=== PATIENT | female | born 1950 | race Caucasian/White ===

== ENCOUNTER → 2022-11-20 07:42 | Outpatient (BNVA) | payer MEDICARE, BC, SELFPAY | PROVIDERS: PCP Nurse Practitioner; Visit Provider Psychiatry & Neurology Neurology | DX: G20 Parkinson's disease (principal); F32.A Depression, unspecified | CPT/HCPCS: 99202 ==

== ENCOUNTER → 2023-02-04 07:31 | Outpatient (BNVA) | payer MEDICARE, BC, SELFPAY | PROVIDERS: PCP Nurse Practitioner; Visit Provider Psychiatry & Neurology Neurology | DX: G20 Parkinson's disease (principal); F32.A Depression, unspecified | CPT/HCPCS: 99212 ==

== ENCOUNTER 2023-05-06 07:33 | Outpatient (AMB) | payer MEDICARE, BC, SELFPAY ==
--- NOTE | 2023-05-06 07:39 | MHC.OFFVIS ---
Intake Vital Signs 05/06/23 07:42 Height 5 ft 4 in Weight 106 lb 6 oz BMI 18.3 BP 120/72 Blood Pressure Location Rt brachial Position Sitting Pulse 57 Pulse Source Pulse Oximeter Pulse Oximetry (%) 97 Oxygen Delivery Method Room Air Intake Visit Reasons: 3m follow up tremors-lvm Intake Note: F/U for Tremors Blower And Compressor Assembler Required: No Allergies gabapentin [From Neurontin] Allergy (Verified 05/06/23 07:39) Unknown Medication List - Last Reconciled 05/06/23 by Dimple Gray MD blood sugar diagnostic ([employer] Ultra Test strips) As directed carbidopa-levodopa 25-100 mg 1 tab PO QID cholecalciferol (vitamin D3) 25 mcg PO DAILY meloxicam 7.5 mg PO DAILY pravastatin 20 mg PO DAILY sertraline 50 mg (2 x 25 mg) PO DAILY HPI HPI Comments History of Present Illness Details 72y/o left handed female comes for follow up diagnosis of parkinsons disease.she noticed improvement with increase in sinemet 25/100 qid she reports 1 fall at home- thinks she tripped over a toy. she was alone with her 2 year old grand son she also reports intermittent tremors in her left hand- less than before. . No cognitive issues. she reports vivid dreams . Not sure about REM behavior disorder. she is depressed as she is waiting hear from her electrical design technician about her leaky mitral valve. Her voice is softer , she denies drooling.she has difficulty with hand writing, using utensils, dressing , with shower. Her gait is slow and mildly off balance No double vision .She has occasional dizziness. No diarrhea or constipation. No hallucinations . No h/o head injury. she had h/o Right trigeminal neuralgia and had surgery. she sleeps at 1 am and wakes up at noon she has mitral regurgitation from recent KATRIN- which probably is causing her fatigue. [facility] Medical History (Updated 05/06/23 @ 08:08 by Dimple Gray MD) Arthritis Depression Hyperlipidemia Mitral regurgitation Pre-diabetes Trigeminal neuralgia Vitamin D deficiency Surgical History History of brain surgery Family History Father Stroke Mother No problems noted. Sister Multiple myeloma Brother Heart problem Social History (Reviewed 05/06/23 @ 07:41 by Mesha Antonio [facility]) Alcohol intake: never Patient Tobacco Use Status: Former Tobacco user Quit Date: 1983 Physical Exam Vital Signs: Last Vital Signs Pulse 57 05/06/23 07:42 BP 120/72 05/06/23 07:42 Pulse Ox 97 05/06/23 07:42 Oxygen Delivery Method Room Air 05/06/23 07:42 BMI result Body Mass Index 18.3 Const General: cooperative, healthy appearing and no acute distress Nutritional Appearance: thin Orientation/consciousness: patient oriented x3 HEENT Head: Yes normal to inspection Neck Other: mild antecollis and restricted range of motion Neuro Other: Moderate decreased blink and facial expression slow tongue movements Voice-mild hypophonia No tremors Fine Finger movements - moderately decreased fercho l>R Alternating hand movements - decreased fercho Hand movements - decreased fercho Foot taps- decreased fercho Fercho mild cog wheel rigidity L>R gait - mild stooped, mild slowness and decreased arm swing L>R General: patient oriented x3 and no focal motor deficits Cranial nerves: Yes CN's II-XII intact bilaterally, Yes Bilaterally intact EOM present, Yes Normal facial strength present and Yes Midline tongue present Motor exam (neuro): 5/5 motor strength present throughout and Normal motor muscle tone present throughout Coordination: [id number] test normal Psych Affect: Depressed mood present Assessment & Plan Assessment & Plan (1) Parkinson's disease: Comment: left sided Code(s): G20 - Parkinson's disease (2) Depression: Code(s): F32.A - Depression, unspecified Plan Discussed the diagnosis in detail carbidopa/levodopa 25/100 qid Increase physical activity. sertraline 50mg qd f/u electrical design technician Home exercises from APDA recommended Medications: Changed From sertraline 50 mg (2 x 25 mg) PO DAILY 60 tabs 3RF To sertraline 50 mg PO DAILY 90 tabs 6RF From carbidopa-levodopa 25-100 mg 1 tab PO QID 120 tabs 5RF To carbidopa-levodopa 25-100 mg 1 tab PO QID 90 days 360 tabs 5RF Coding Level of Care Code Est Pt Level 4 (72661) Diagnoses Parkinson's disease G20 Depression F32.A
[2023-05-06 07:42] VITALS: BP 120/72; PULSE 57; O2SAT 97; BMI 18.3
== END 2023-05-06 08:13 | disposition home or self-care (01) ==
LOC: HO.HSMS 07:33
PROVIDERS: PCP Nurse Practitioner; Visit Provider Psychiatry & Neurology Neurology
DX: G20 Parkinson's disease (principal); F32.A Depression, unspecified
CPT/HCPCS: 99214

== ENCOUNTER → 2023-05-06 07:33 | Outpatient (BNVA) | payer MEDICARE, BC, SELFPAY | PROVIDERS: PCP Nurse Practitioner; Visit Provider Psychiatry & Neurology Neurology | DX: G20 Parkinson's disease (principal); F32.A Depression, unspecified; Z79.899 Other long term (current) drug therapy | CPT/HCPCS: 99212 ==

== ENCOUNTER 2023-09-07 07:32 | Outpatient (AMB) | payer MEDICARE, BC, SELFPAY ==
--- NOTE | 2023-09-07 07:36 | A.OFFVIS_ITS ---
Intake Vital Signs 09/07/23 07:43 Weight 111 lb 2 oz BP 112/68 Blood Pressure Location Rt brachial Position Sitting Pulse 65 Pulse Source Pulse Oximeter Pulse Oximetry (%) 100 Oxygen Delivery Method Room Air Intake Visit Reasons: 4m f/u tremors - Confirmed Intake Note: F/U tremors, patient states fell about three weeks ago and injured her arm Circuit Manager Required: No Allergies gabapentin [From Neurontin] Allergy (Verified 09/07/23 07:37) Unknown Medication List - Last Reconciled 09/07/23 by Dimple Gray MD blood sugar diagnostic ([employer] Ultra Test strips) As directed carbidopa-levodopa 25-100 mg 1 tab PO QID 90 days cholecalciferol (vitamin D3) 25 mcg PO DAILY furosemide 20 mg PO DAILY meloxicam 7.5 mg PO DAILY pravastatin 20 mg PO DAILY sertraline mg PO sertraline 50 mg PO DAILY HPI HPI Comments History of Present Illness Details 73y/o left handed female [facility] parkinsons disease.she noticed improvement with increase in sinemet 25/100 qid she had a fall 3 weeks ago - she was dizzy after she stood up and fell in the bathroom. she could not get up for 6 hrs . she was alone at home. she could not get help . she had her FLU vaccine and Covid vaccine the previous day . she also reports vivid dreams and has poor sleep hygiene. she also reports intermittent tremors in her left hand- less than before. . No cognitive issues. Not sure about REM behavior disorder. she saw her it operations manager about her leaky mitral valve-had KATRIN and was told nonsurgical. Her voice is softer , she denies drooling.she has difficulty with hand writing, using utensils, dressing , with shower. Her gait is slow and mildly off balance No double vision .She has occasional dizziness. No diarrhea or constipation. No hallucinations . No h/o head injury. she had h/o Right trigeminal neuralgia and had surgery. she sleeps at 1 am and wakes up at noon [facility] Medical History Mitral regurgitation Depression Vitamin D deficiency Arthritis Trigeminal neuralgia Hyperlipidemia Pre-diabetes Surgical History History of brain surgery Family History Father Stroke Mother No problems noted. Sister Multiple myeloma Brother Heart problem Social History Alcohol intake: never Patient Tobacco Use Status: Former Tobacco user Quit Date: 1983 Use of substances other than those prescribed or required for medical reasons: No Physical Exam Vital Signs: Last Vital Signs Pulse 65 09/07/23 07:43 BP 112/68 09/07/23 07:43 Pulse Ox 100 09/07/23 07:43 Oxygen Delivery Method Room Air 09/07/23 07:43 Const General: cooperative, healthy appearing and no acute distress Nutritional Appearance: thin Orientation/consciousness: patient oriented x3 HEENT Head: Yes normal to inspection Neck Other: mild antecollis and restricted range of motion Neuro Other: Moderate decreased blink and facial expression slow tongue movements Voice-mild hypophonia No tremors Fine Finger movements - moderately decreased peter l>R Alternating hand movements - decreased peter Hand movements - decreased peter Foot taps- decreased peter Peter mild cog wheel rigidity L>R gait - mild stooped, mild slowness and decreased arm swing L>R General: patient oriented x3 and no focal motor deficits Cranial nerves: Yes CN's II-XII intact bilaterally, Yes Bilaterally intact EOM present, Yes Normal facial strength present and Yes Midline tongue present Motor exam (neuro): 5/5 motor strength present throughout and Normal motor muscle tone present throughout Coordination: [id number] test normal Psych Affect: Depressed mood present Assessment & Plan Assessment & Plan (1) Parkinson's disease: Comment: left sided Code(s): G20 - Parkinson's disease (2) Depression: Code(s): F32.A - Depression, unspecified Plan Discussed the diagnosis in detail Carbidopa/levodopa 25/100 qid Increase physical activity.Suggested PT - patient concerned about her heart.I suggetsed she get clearance form her it operations manager. increase fluids start melatonin 5-10 mg at bedtime . sertraline 50mg qd f/u it operations manager Home exercises from APDA recommended - Orders: Orders PT Evaluation and Treatment Today G20 - Parkinson's disease Coding Level of Care Code Est Pt Level 5 (43926) Diagnoses Parkinson's disease G20 Depression F32.A Time Spent (min) 40
[2023-09-07 07:43] VITALS: BP 112/68; PULSE 65; O2SAT 100
== END 2023-09-07 08:12 | disposition home or self-care (01) ==
PROVIDERS: PCP Nurse Practitioner; Visit Provider Psychiatry & Neurology Neurology
DX: G20.A1 Parkinson's disease without dyskinesia, without mention of fluctuations (principal); F32.A Depression, unspecified
CPT/HCPCS: 99215

== ENCOUNTER → 2023-09-07 07:32 | Outpatient (BNVA) | payer MEDICARE, BC, SELFPAY | PROVIDERS: PCP Nurse Practitioner; Visit Provider Psychiatry & Neurology Neurology | DX: F32.A Depression, unspecified (principal); G20.A1 Parkinson's disease without dyskinesia, without mention of fluctuations | CPT/HCPCS: 99212 ==

== ENCOUNTER 2023-11-29 15:23 | Outpatient (AMB) | payer MEDICARE, BC, SELFPAY ==
--- NOTE | 2023-11-29 15:42 | A.OFFVIS_ITS ---
Intake Vital Signs 11/29/23 15:43 Height 5 ft 4 in BP 106/60 Blood Pressure Location Rt brachial Position Sitting Respiration 16 Pulse 78 Pulse Source Pulse Oximeter Pulse Oximetry (%) 98 Oxygen Delivery Method Room Air Intake Visit Reasons: Follow up - LVM Intake Note: Pt presents tot he office for a 3 month follow up for Parkinson's. Pt reports she feels a slight decline since her last visit. Floatlight Powder Mixer Required: No Allergies gabapentin [From Neurontin] Allergy (Verified 11/29/23 15:43) Unknown Medication List - Last Reconciled 11/29/23 by Dimple Gray MD blood sugar diagnostic ([employer] Ultra Test strips) As directed carbidopa-levodopa 25-100 mg 1.5 tabs PO QID 90 days cholecalciferol (vitamin D3) 25 mcg PO DAILY furosemide 20 mg PO DAILY meloxicam 7.5 mg PO DAILY pravastatin 20 mg PO DAILY sertraline mg PO sertraline 50 mg PO DAILY HPI HPI Comments History of Present Illness Details 73y/o left handed female comes for follo w up of parkinsons disease.she noticed improvement with increase in sinemet 25/100 qid. NO falls since her last visi t. she started PT for her left shoulder hand recently she reports fatigue and dizziness. . she also reports vivid dreams and has poor sleep hygiene. she also reports intermittent tremors in her left hand- less than before. . No cognitive issues. Not sure about REM behavior disorder. she saw her compliance quality performance analyst about her leaky mitral valve-had KATRIN and was told nonsurgical. Her voice is softer , she denies drooling.she has difficulty with hand writing, using utensils, dressing , with shower. Her gait is slow and mildly off balance No double vision .. No diarrhea or constipation. No hallucinations . No h/o head injury. she had h/o Right trigeminal neuralgia and had surgery. she sleeps at 1 am and wakes up at noon [facility] Medical History Left arm pain Mitral regurgitation Depression Vitamin D deficiency Arthritis Trigeminal neuralgia Hyperlipidemia Pre-diabetes Surgical History History of brain surgery Family History Father Stroke Mother No problems noted. Sister Multiple myeloma Brother Heart problem Social History Alcohol intake: never Patient Tobacco Use Status: Former Tobacco user Quit Date: 1983 Physical Exam Vital Signs: Last Vital Signs Pulse 78 11/29/23 15:43 Resp 16 11/29/23 15:43 BP 106/60 11/29/23 15:43 Pulse Ox 98 11/29/23 15:43 Oxygen Delivery Method Room Air 11/29/23 15:43 Const General: cooperative, healthy appearing and no acute distress Nutritional Appearance: thin Orientation/consciousness: patient oriented x3 HEENT Head: Yes normal to inspection Neck Other: mild antecollis and restricted range of motion Neuro Other: Moderate decreased blink and facial expression slow tongue movements Voice-mild hypophonia No tremors Fine Finger movements - moderately decreased peter l>R Alternating hand movements - decreased peter Hand movements - decreased peter Foot taps- decreased peter Peter mild cog wheel rigidity L>R gait - mild stooped, mild slowness and decreased arm swing L>R General: patient oriented x3 and no focal motor deficits Cranial nerves: Yes CN's II-XII intact bilaterally, Yes Bilaterally intact EOM present, Yes Normal facial strength present and Yes Midline tongue present Motor exam (neuro): 5/5 motor strength present throughout and Normal motor muscle tone present throughout Coordination: [id number] test normal Psych Affect: Depressed mood present Assessment & Plan Assessment & Plan (1) Parkinson's disease: Comment: left sided Code(s): G20 - Parkinson's disease (2) Depression: Code(s): F32.A - Depression, unspecified Plan Discussed the diagnosis in detail Increase Carbidopa/levodopa 25/100 qid - 1 1/2 qid increase fluids start melatonin 5-10 mg at bedtime . sertraline 50mg qd f/u compliance quality performance analyst Home exercises from APDA recommended - Medications: Changed From carbidopa-levodopa 25-100 mg 1 tab PO QID 360 tabs 5RF 90 days To carbidopa-levodopa 25-100 mg 1.5 tabs PO QID 540 tabs 5RF 90 days Coding Level of Care Code Est Pt Level 4 (25717) Diagnoses Parkinson's disease G20 Depression F32.A
[2023-11-29 15:43] VITALS: BP 106/60; PULSE 78; RESP 16; O2SAT 98
== END 2023-11-29 16:16 | disposition home or self-care (01) ==
PROVIDERS: PCP Nurse Practitioner; Visit Provider Psychiatry & Neurology Neurology
DX: G20.A1 Parkinson's disease without dyskinesia, without mention of fluctuations (principal); F32.A Depression, unspecified
CPT/HCPCS: 99214

== ENCOUNTER → 2023-11-29 15:23 | Outpatient (BNVA) | payer MEDICARE, BC, SELFPAY | PROVIDERS: PCP Nurse Practitioner; Visit Provider Psychiatry & Neurology Neurology | DX: G20.C Parkinsonism, unspecified (principal); F32.A Depression, unspecified; Z79.899 Other long term (current) drug therapy | CPT/HCPCS: 99212 ==

== ENCOUNTER 2023-12-08 14:00 | Outpatient (RCR) | payer MEDICARE, SELFPAY | END 2024-01-04 10:03 | disposition home or self-care (01) | LOC: HO.OT 14:00 | PROVIDERS: PCP Nurse Practitioner; Visit Provider Psychiatry & Neurology Neurology | DX: M79.602 Pain in left arm (principal) | CPT/HCPCS: 97110; 97167; 97530 ==

== ENCOUNTER 2024-03-28 13:53 | Outpatient (AMB) | payer MEDICARE, BC, SELFPAY ==
--- NOTE | 2024-03-28 14:06 | A.OFFVIS_ITS ---
Vital Signs 03/28/24 14:07 Height 5 ft 4 in Weight 102 lb 4 oz BMI 17.5 BP 86/60 L Blood Pressure Location Rt brachial Position Sitting Respiration 16 Pulse 94 Pulse Source Pulse Oximeter Pulse Oximetry (%) 95 Oxygen Delivery Method Room Air Intake Visit Reasons: 3 month/FU - Confirmed Intake Note: Pt presents for a 4 month follow up for Parkinson's. Water Tester Required: No Allergies gabapentin [From Neurontin] Allergy (Verified 03/28/24 14:06) Unknown Medication List - Last Reconciled 03/28/24 by Dimple Gray MD apixaban 5 mg PO BID blood sugar diagnostic ([facility] Ultra Test strips) As directed carbidopa-levodopa 25-100 mg 1.5 tabs PO QID 90 days cholecalciferol (vitamin D3) 25 mcg PO DAILY furosemide 20 mg PO DAILY meloxicam 7.5 mg PO DAILY metoprolol succinate ER 25 mg PO DAILY midodrine 10 mg PO TID midodrine 10 mg PO TID pravastatin 20 mg PO DAILY sertraline mg PO sertraline 50 mg PO DAILY HPI Comments Details: 73y/o left handed female comes for follow up of parkinsons disease.she noticed improvement with increase in sinemet 25/100 qid. she had some food poisoning recently 3-4 days she had nausea and vomiting and was very weak . she had a fall. she drinks water Her is confused with metoprolol and mdiodrine dosing so he has not been giving it. she started PT for her left shoulder hand recently she reports fatigue and dizziness. . she also reports vivid dreams and has poor sleep hygiene. she also reports intermittent tremors in her left hand- less than before. . No cognitive issues. Not sure about REM behavior disorder. she saw her auto garage mechanic about her leaky mitral valve-had KATRIN and was told nonsurgical. Her voice is softer , she denies drooling.she has difficulty with hand writing, using utensils, dressing , with shower. Her gait is slow and mildly off balance No double vision .. No diarrhea or constipation. No hallucinations . No h/o head injury. she had h/o Right trigeminal neuralgia and had surgery. she sleeps at 1 am and wakes up at noon [facility] Medical History (Updated 03/28/24 @ 14:27 by Dimple Gray MD) Parkinson's disease without dyskinesia Left arm pain Mitral regurgitation Depression Vitamin D deficiency Arthritis Trigeminal neuralgia Hyperlipidemia Pre-diabetes Surgical History History of brain surgery Family History Father Stroke Mother No problems noted. Sister Multiple myeloma Brother Heart problem Social History Alcohol intake: never Patient Tobacco Use Status: Former Tobacco user Physical Exam Vital Signs: Last Vital Signs Pulse 94 03/28/24 14:07 Resp 16 03/28/24 14:07 BP 86/60 L 03/28/24 14:07 Pulse Ox 95 03/28/24 14:07 Oxygen Delivery Method Room Air 03/28/24 14:07 BMI result Body Mass Index 17.5 Const General: cooperative, healthy appearing and no acute distress Nutritional Appearance: thin Orientation/consciousness: patient oriented x3 HEENT Head: Yes normal to inspection Neck Other: mild antecollis and restricted range of motion Neuro Other: Moderate decreased blink and facial expression slow tongue movements Voice-mild hypophonia No tremors Fine Finger movements - moderately decreased fercho l>R Alternating hand movements - decreased fercho Hand movements - decreased fercho Foot taps- decreased fercho Fercho mild cog wheel rigidity L>R gait - mild stooped, mild slowness and decreased arm swing L>R General: patient oriented x3 and no focal motor deficits Cranial nerves: Yes CN's II-XII intact bilaterally, Yes Bilaterally intact EOM present, Yes Normal facial strength present and Yes Midline tongue present Motor exam (neuro): 5/5 motor strength present throughout and Normal motor muscle tone present throughout Coordination: [id number] test normal Psych Affect: Depressed mood present Assessment & Plan Assessment & Plan (1) Parkinson's disease without dyskinesia: Code(s): G20.A1 - Parkinson's disease without dyskinesia, without mention of fluctuations Category: Medical (2) Parkinson's disease: Comment: left sided Code(s): G20 - Parkinson's disease Category: Medical (3) Depression: Code(s): F32.A - Depression, unspecified Category: Medical Plan D/C metoprolol change midodrine time Carbidopa/levodopa 25/100 qid increase fluids melatonin 5-10 mg at bedtime . sertraline 50mg qd f/u auto garage mechanic Medications: New midodrine 7am-1pm 3pm 10 mg PO TID 30 tabs 6RF orthostatic hypotension Coding Level of Care Code Est Pt Level 4 (19964) Complex EM visit Add On G2211 Diagnoses Parkinson's disease without dyskinesia G20.A1 Parkinson's disease G20 Depression F32.A
[2024-03-28 14:07] VITALS: BP 86/60; PULSE 94; RESP 16; O2SAT 95; BMI 17.5
== END 2024-03-28 14:50 | disposition home or self-care (01) ==
PROVIDERS: PCP Nurse Practitioner; Visit Provider Psychiatry & Neurology Neurology
DX: G20.A1 Parkinson's disease without dyskinesia, without mention of fluctuations (principal); F32.A Depression, unspecified
CPT/HCPCS: 99214; G2211

== ENCOUNTER → 2024-03-28 13:53 | Outpatient (BNVA) | payer MEDICARE, BC, SELFPAY | PROVIDERS: PCP Nurse Practitioner; Visit Provider Psychiatry & Neurology Neurology | DX: G20.A1 Parkinson's disease without dyskinesia, without mention of fluctuations (principal); F32.A Depression, unspecified; Z79.899 Other long term (current) drug therapy | CPT/HCPCS: 99212 ==

== ENCOUNTER 2024-10-04 15:06 | Outpatient (AMB) | payer MEDICARE, BC, SELFPAY ==
--- NOTE | 2024-10-04 13:53 | A.OFFVIS_ITS ---
Intake Visit Reasons: Follow up Allergies gabapentin [From Neurontin] Allergy (Verified 10/04/24 13:53) Unknown Medication List - Last Reconciled 10/04/24 by Dimple Gray MD apixaban 5 mg PO BID blood sugar diagnostic ([employer] Ultra Test strips) As directed carbidopa-levodopa 25-100 mg 2-1.5-2-1.5 orally 4 times a day; 90 days cholecalciferol (vitamin D3) 25 mcg PO DAILY furosemide 20 mg PO DAILY meloxicam 7.5 mg PO DAILY midodrine 5 mg PO TID midodrine 5 mg PO TID pravastatin 20 mg PO DAILY sertraline 50 mg PO DAILY HPI Comments Details: 74y/o left handed female calls for follow up of parkinsons disease. she is on sinemet 25/100 1.5 tabs qid. she had hallucinations last week but is better the past 2 days. She is on midodrine 10 mg 1/2 tab tid She feels she is slower Droxidopa is very expensive so she stopped. she also reports vivid dreams and has poor sleep hygiene. she also reports intermittent tremors in her left hand- less than before. . No cognitive issues. Not sure about REM behavior disorder. she saw her customer service advisor about her leaky mitral valve-had KATRIN and was told nonsurgical. Her voice is softer , she denies drooling.she has difficulty with hand writing, using utensils, dressing , with shower. Her gait is slow and mildly off balance No double vision .. No diarrhea or constipation. No hallucinations . No h/o head injury. she had h/o Right trigeminal neuralgia and had surgery. she sleeps at 1 am and wakes up at noon [facility] Medical History Orthostatic hypotension Parkinson's disease without dyskinesia Left arm pain Mitral regurgitation Depression Vitamin D deficiency Arthritis Trigeminal neuralgia Hyperlipidemia Pre-diabetes Surgical History History of brain surgery Family History Father Stroke Mother No problems noted. Sister Multiple myeloma Brother Heart problem Social History Alcohol intake: never Patient Tobacco Use Status: Former Tobacco user Physical Exam Const Other: speech - softer Hypophonia ALert , awake oriented General: cooperative Telehealth Telehealth Telehealth Platform: Telephone Location of provider rendering services: practice address Location of patient: address on file Patient Identification confirmed using: Name, : Yes Telehealth method: voice only Patient verbally consented to treatment: Yes Patient verbally consented to billing insurance company: Yes Patient informed of any privacy concerns related to visit: Yes Minutes spent on Phone/Video with Pt.: 22 Assessment & Plan Assessment & Plan (1) Parkinson's disease without dyskinesia: Code(s): G20.A1 - Parkinson's disease without dyskinesia, without mention of fluctuations Category: Medical Qualifiers: Fluctuating manifestations: without fluctuating manifestations Qualified Code(s): G20.A1 - Parkinson's disease without dyskinesia, without mention of fluctuations (2) Depression: Code(s): F32.A - Depression, unspecified Category: Medical Qualifiers: Depression Type: unspecified Qualified Code(s): F32.A - Depression, unspecified (3) Orthostatic hypotension: Code(s): I95.1 - Orthostatic hypotension Category: Medical Plan Midodrine 5mg tid Carbidopa/levodopa 25/100 2- 1.5-2-1.5 increase fluids melatonin 5-10 mg at bedtime . sertraline 50mg qd f/u customer service advisor Medications: Changed From carbidopa-levodopa 25-100 mg 1.5 tabs PO QID 90 days 540 tabs 5RF To carbidopa-levodopa 25-100 mg 2-1.5-2-1.5 orally 4 times a day; 90 days 540 tabs 5RF Discontinued droxidopa give consistently with OR without food, upon rising, at midday, late PM/at least 3hrs before bedtime Discontinued Reason: Patient no longer taking 100 mg PO TID 90 caps 0RF Coding Level of Care Code Tele Est Pt Level 4 (42705) Complex EM visit Add On G2211 Diagnoses Parkinson's disease without dyskinesia or fluctuating manifestations G20.A1 Fluctuating manifestations: without fluctuating manifestations Depression, unspecified depression type F32.A Depression Type: unspecified Orthostatic hypotension I95.1 Time Spent (min) 22
--- OUTSIDE RECORDS SUMMARY | 2024-10-05 02:37 | XMS_ITS | Clinical Summary ---
Author Organization Unknown Care Team Providers Care Nitroglycerin Neutralizer Name Role Phone INGA SAXOPHONE TEACHER, GEO Unavailable Unavailable MICHELA PT, JACLYN Unavailable Unavailable [place]OL[place]AN OT, ISHMAEL Unavailable Unavailable OLIVER RN, JUNG Unavailable Unavailable ROQUE PLASTER WHITTLER, CHI Unavailable Unavailable CONDINO ANDRIY/PLASCENCIA, ERIK Unavailable Unav ailable MARIELLE MONKEY BREEDER, GALILEO Unavailable Unavailabl e Payers Payer Name Policy Type Policy Number Effective Date Expira tion Date MEDICARE.NGS.PDGM [id number] Problems Condition Name Condition Details Condition Category Status Onset Date Resolution Date Last Treatment Date Treating Clinician Comments ACUTE SYSTOLIC (CONGESTIVE) HEART FAILURE Active 04-26 00:00: 00 UNSPECIFIED ATRIAL FIBRILLATION Active 03-02 00:00: 00 PARKINSON'S DIS W/O DYSKINESIA, W/O MENTION OF FLUCTUATIONS Active 03-02 00:00: 00 FX UNSP PART OF L CLAVICLE, SUBS FOR FX W ROUTN HEAL Active 02-28 00:00: 00 UNSPECIFIED INJURY OF RIGHT FOOT, INITIAL ENCOUNTER Active 10-25 00:00: 00 ACUTE RESPIRATORY FAILURE WITH HYPOXIA Active 10-25 00:00: 00 NONRHEUMATIC MITRAL (VALVE) INSUFFICIENC Y Active 10-25 00:00: 00 HYPOTENSION, UNSPECIFIED Active 10-25 00:00: 00 ANXIETY DISORDER, UNSPECIFIED Active 10-25 00:00: 00 DEPRESSION, UNSPECIFIED Active 10-25 00:00: 00 UNSPECIFIED PROTEIN-IFTIKHAR ARIAN MALNUTRITION Active 10-25 00:00: 00 HYPERLIPIDEM IA, UNSPECIFIED Active 10-25 00:00: 00 HISTORY OF FALLING Active 10-25 00:00: 00 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 Ordering Clinician Indication Dosage Frequency Signature (SIG) Comments Components carbidopa 10 mg-levodopa 100 mg tablet 01-23 00:00: 00 Yes [id number] PARKINSON 1 tablet 4 TIMES DAILY 1 tablet 4 TIMES DAILY (route: oral) Med Classific ation: Central Nervous System Agents Eliquis 5 mg tablet 01-23 00:00: 00 Yes [id number] AFIB 1 tablet 2 TIMES DAILY 1 tablet 2 TIMES DAILY (route: oral) Med Classific ation: Hematolog ical Agents Lidocaine Pain Relief 4 % topical patch 01-23 00:00: 00 Yes [id number] PAIN 1 adhesiv e patch, medicat ed DAILY 1 adhesive patch, medicated DAILY (route: topical) Med Classific ation: Dermatolo gical metoprolol succinate ER 25 mg tablet,exte nded release 24 hr 01-23 00:00: 00 03-03 12:57 :13.8 53 No [id number] HTN 0.5 tablet DAILY 0.5 tablet DAILY (route: oral) Med Classific ation: Cardiovas cular Therapy Agents omeprazole 20 mg capsule,del ayed release 01-23 00:00: 00 Yes [id number] GERD 1 capsule DAILY 1 capsule DAILY (route: oral) Med Classific ation: Gastroint estinal Therapy Agents pravastatin 20 mg tablet 01-23 00:00: 00 Yes [id number] HLD 1 tablet DAILY 1 tablet DAILY (route: oral) Med Classific ation: Cardiovas cular Therapy Agents sertraline 25 mg tablet 01-23 00:00: 00 Yes [id number] DEPRESSION 3 tablet DAILY 3 tablet DAILY (route: oral) Med Classific ation: Central Nervous System Agents Tylenol Extra Strength 500 mg tablet 01-23 00:00: 00 Yes [id number] PAIN 2 tablet EVERY 6 HOURS 2 tablet EVERY 6 HOURS (route: oral) Med Classific ation: Analgesic , Anti-infl ammatory or Antipyret ic Vitamin D3 125 mcg (5,000 unit) tablet 01-23 00:00: 00 Yes [id number] SUPPLEMENT 1 tablet DAILY 1 tablet DAILY (route: oral) Med Classific ation: Electroly te Balance-N utritiona l Products docusate sodium 100 mg capsule 03-02 00:00: 00 Yes [id number] CONSTIPATIO N 1 capsule 2 TIMES DAILY 1 capsule 2 TIMES DAILY (route: oral) Med Classific ation: Gastroint estinal Therapy Agents midodrine 10 mg tablet 03-02 00:00: 00 Yes [id number] HYPOTENSION 1 tablet 3 TIMES DAILY 1 tablet 3 TIMES DAILY (route: oral) Med Classific ation: Cardiovas cular Therapy Agents Lasix 20 mg tablet 03-02 00:00: 00 Yes [id number] CHF 1 tablet DAILY 1 tablet DAILY (route: oral) Med Classific ation: Cardiovas cular Therapy Agents carbidopa 25 mg-levodopa 100 mg tablet 03-02 00:00: 00 Yes [id number] parkinsons 1 tablet 4 TIMES DAILY 1 tablet 4 TIMES DAILY (route: oral) Med Classific ation: Central Nervous System Agents metoprolol succinate ER 25 mg tablet,exte nded release 24 hr 03-02 00:00: 00 Yes [id number] htn 1 tablet DAILY 1 tablet DAILY (route: oral) Med Classific ation: Cardiovas cular Therapy Agents Vital Signs Vital Name Observation Time Observation Value Commen ts Temperature 2024-06-28 10:39:00.000 97.7 [degF] Temperature 2024-06-27 14:09:00.000 97.5 [degF] Temperature 2024-06-23 16:30:00.000 97.3 [degF] Temperature 2024-06-22 10:52:00.000 97 [degF] Temperature 2024-06-14 13:45:00.000 97.1 [degF] Temperature 2024-06-08 10:14:00.000 97 [degF] Temperature 2024-05-30 13:35:00.000 97.5 [degF] Temperature 2024-05-25 12:37:00.000 97.3 [degF] Temperature 2024-05-24 17:39:00.000 97 [degF] Temperature 2024-05-17 13:43:00.000 97.1 [degF] Temperature 2024-05-10 13:26:00.000 97.6 [degF] Temperature 2024-05-04 09:32:00.000 97.6 [degF] Pulse 2024-06-28 10:39:00.000 68 /min Pulse 2024-06-27 14:09:00.000 60 /min Pulse 2024-06-23 16:32:00.000 62 /min Pulse 2024-06-22 10:52:00.000 76 /min Pulse 2024-06-14 13:45:00.000 64 /min Pulse 2024-06-08 10:14:00.000 70 /min Pulse 2024-05-30 13:35:00.000 74 /min Pulse 2024-05-25 12:37:00.000 69 /min Pulse 2024-05-24 17:39:00.000 68 /min Pulse 2024-05-17 13:43:00.000 61 /min Pulse 2024-05-10 13:26:00.000 68 /min Pulse 2024-05-04 09:32:00.000 86 /min O2 Saturation (%) 2024-06-28 10:39:00.000 100 % O2 Saturation (%) 2024-06-27 14:09:00.000 99 % O2 Saturation (%) 2024-06-22 10:52:00.000 97 % O2 Saturation (%) 2024-06-14 13:45:00.000 97 % O2 Saturation (%) 2024-06-08 10:14:00.000 97 % O2 Saturation (%) 2024-05-30 13:35:00.000 99 % O2 Saturation (%) 2024-05-25 12:37:00.000 97 % O2 Saturation (%) 2024-05-24 17:39:00.000 97 % O2 Saturation (%) 2024-05-17 13:43:00.000 100 % O2 Saturation (%) 2024-05-10 13:26:00.000 98 % O2 Saturation (%) 2024-05-04 09:32:00.000 96 % Respirations 2024-06-28 10:39:00.000 18 /min Respirations 2024-06-27 14:09:00.000 16 /min Respirations 2024-06-23 16:30:00.000 16 /min Respirations 2024-06-22 10:52:00.000 16 /min Respirations 2024-06-14 13:45:00.000 16 /min Respirations 2024-06-08 10:14:00.000 16 /min Respirations 2024-05-30 13:35:00.000 16 /min Respirations 2024-05-25 12:37:00.000 16 /min Respirations 2024-05-24 17:39:00.000 16 /min Respirations 2024-05-17 13:43:00.000 16 /min Respirations 2024-05-10 13:26:00.000 16 /min Respirations 2024-05-04 09:32:00.000 16 /min Weight (lbs) 2024-06-28 10:39:00.000 103 [lb_av] Weight (lbs) 2024-06-27 14:28:00.000 101.1 [lb_av] Weight (lbs) 2024-06-23 16:30:00.000 101.1 [lb_av] Weight (lbs) 2024-06-22 10:53:00.000 101 [lb_av] Weight (lbs) 2024-06-14 13:45:00.000 102 [lb_av] Weight (lbs) 2024-06-08 10:15:00.000 102 [lb_av] Weight (lbs) 2024-05-30 13:38:00.000 102.2 [lb_av] Weight (lbs) 2024-05-25 12:38:00.000 101 [lb_av] Weight (lbs) 2024-05-24 17:39:00.000 101 [lb_av] Weight (lbs) 2024-05-17 13:44:00.000 101 [lb_av] Weight (lbs) 2024-05-10 13:27:00.000 102 [lb_av] Weight (lbs) 2024-05-04 09:34:00.000 101 [lb_av] Systolic Blood Pressure 2024-06-28 10:39:00.000 104 mm [Hg] Systolic Blood Pressure 2024-06-27 14:09:00.000 104 mm [Hg] Systolic Blood Pressure 2024-06-23 16:34:00.000 100 mm [Hg] Systolic Blood Pressure 2024-06-22 10:52:00.000 100 mm [Hg] Systolic Blood Pressure 2024-06-14 13:45:00.000 100 mm [Hg] Systolic Blood Pressure 2024-06-08 10:14:00.000 116 mm [Hg] Systolic Blood Pressure 2024-05-30 13:35:00.000 106 mm [Hg] Systolic Blood Pressure 2024-05-25 12:37:00.000 104 mm [Hg] Systolic Blood Pressure 2024-05-24 17:39:00.000 108 mm [Hg] Systolic Blood Pressure 2024-05-17 13:43:00.000 105 mm [Hg] Systolic Blood Pressure 2024-05-10 13:26:00.000 110 mm [Hg] Systolic Blood Pressure 2024-05-04 09:32:00.000 90 mm[ Hg] Diastolic Blood Pressure 2024-06-28 10:39:00.000 70 mm [Hg] Diastolic Blood Pressure 2024-06-27 14:09:00.000 56 mm [Hg] Diastolic Blood Pressure 2024-06-23 16:34:00.000 60 mm [Hg] Diastolic Blood Pressure 2024-06-22 10:52:00.000 64 mm [Hg] Diastolic Blood Pressure 2024-06-14 13:45:00.000 60 mm [Hg] Diastolic Blood Pressure 2024-06-08 10:14:00.000 70 mm [Hg] Diastolic Blood Pressure 2024-05-30 13:35:00.000 66 mm [Hg] Diastolic Blood Pressure 2024-05-25 12:37:00.000 59 mm [Hg] Diastolic Blood Pressure 2024-05-24 17:39:00.000 60 mm [Hg] Diastolic Blood Pressure 2024-05-17 13:43:00.000 60 mm [Hg] Diastolic Blood Pressure 2024-05-10 13:26:00.000 60 mm [Hg] Diastolic Blood Pressure 2024-05-04 09:32:00.000 52 mm [Hg] Plan of Treatment Planned Activity Planned Date Details Comments Future Scheduled Test PHYSICAL T HERAPIST TO EVALUATE TREAT INDICATED [code = PHYSICAL THERAPIST TO EVALUATE TREAT INDICATED ] Future Scheduled Test MEDICATION MANAGEMENT; REGISTERED NURSE/LICENSED PRACTICAL NURSE TO REVIEW MEDICATIONS FOR INTERACTIONS, EFFECTIVENESS OF DRUG THERAPY, AND SIGNS/SYMPTOMS OF ADVERSE REACTIONS. MAY INSTRUCT AND REINFORCE MEDICATION TEACHING RELATED TO THE USE OF MEDICATIONS, DOSAGE, FREQUENCY, PURPOSE, SIDE EFFECTS, AND TO REPORT COMPLICATIONS. [code = MEDICATION MANAGEMENT; REGISTERED NURSE/LICENSED PRACTICAL NURSE TO REVIEW MEDICATIONS FOR INTERACTIONS, EFFECTIVENESS OF DRUG THERAPY, AND SIGNS/SYMPTOMS OF ADVERSE REACTIONS. MAY INSTRUCT AND REINFORCE MEDICATION TEACHING RELATED TO THE USE OF MEDICATIONS, DOSAGE, FREQUENCY, PURPOSE, SIDE EFFECTS, AND TO REPORT COMPLICATIONS.] Future Scheduled Test FALL REDUC TION MANAGEMENT; REGISTERED NURSE TO ASSESS AND TEACH/LICENSED PRACTICAL NURSE TO OBSERVE AND TEACH ON EDUCATION AND INTERVENTION TO IDENTIFY FALL RISK FACTORS SUCH MEDICATIONS THAT MAY CAUSE DIZZINESS, CHRONIC DISEASES, PSYCHOLOGICAL FACTORS, AND EMPOWER/EDUCATE PATIENT/CAREGIVER TO MINIMIZE FALL RISK. [code = FALL REDUCTION MANAGEMENT; REGISTERED NURSE TO ASSESS AND TEACH/LICENSED PRACTICAL NURSE TO OBSERVE AND TEACH ON EDUCATION AND INTERVENTION TO IDENTIFY FALL RISK FACTORS SUCH MEDICATIONS THAT MAY CAUSE DIZZINESS, CHRONIC DISEASES, PSYCHOLOGICAL FACTORS, AND EMPOWER/EDUCATE PATIENT/CAREGIVER TO MINIMIZE FALL RISK.] Future Scheduled Test RN TO OBSE RVE, ASSESS, EVALUATE, AND DEVELOP AN INDIVIDUALIZED PLAN OF CARE. AGENCY MAY ACCEPT ORDERS FROM CONSULTING PHYSICIANS GEO XIONG NP. REGISTERED NURSETO OBSERVE AND ASSESS/LICENSED PRACTICAL NURSE TO OBSERVE FOR RISK FOR FALLS AND INSTRUCT IN FALL PREVENTION, HOME SAFETY, MEDICATION MANAGEMENT, INFECTION PREVENTION, AND NUTRITION MANAGEMENT. REGISTERED NURSE/LICENSED PRACTICAL NURSE MAY PERFORM O2 SATURATION LEVEL ON ADMISSION AND PRN FOR SOB FOR RN TO ASSESS/MONKEY BREEDER TO OBSERVE PATIENT, WITH NOTIFICATION TO THE PHYSICIAN IF SATURATION IS 90% IN THE ABSENCE OF MORE SPECIFIC PARAMETERS FROM THE PHYSICIAN. AGENCY MAY PERFORM A RESUMPTION OF CARE VISIT FOLLOWING ANY HOSPITAL ADMISSION. REGISTERED NURSE/LICENSED PRACTICAL NURSE TO MONITOR CO-MORBID CONDITIONS LISTED ON THE PLAN OF CARE AND ANY NEW CONDITIONS THAT PRESENT THEMSELVES DURING THIS EPISODE TO IDENTIFY CHANGES AND INTERVENE TO MINIMIZE COMPLICATIONS. [code = RN TO OBSERVE, ASSESS, EVALUATE, AND DEVELOP AN INDIVIDUALIZED PLAN OF CARE. AGENCY MAY ACCEPT ORDERS FROM CONSULTING PHYSICIANS GEO XIONG NP. REGISTERED NURSETO OBSERVE AND ASSESS/LICENSED PRACTICAL NURSE TO OBSERVE FOR RISK FOR FALLS AND INSTRUCT IN FALL PREVENTION, HOME SAFETY, MEDICATION MANAGEMENT, INFECTION PREVENTION, AND NUTRITION MANAGEMENT. REGISTERED NURSE/LICENSED PRACTICAL NURSE MAY PERFORM O2 SATURATION LEVEL ON ADMISSION AND PRN FOR SOB FOR RN TO ASSESS/MONKEY BREEDER TO OBSERVE PATIENT, WITH NOTIFICATION TO THE PHYSICIAN IF SATURATION IS 90% IN THE ABSENCE OF MORE SPECIFIC PARAMETERS FROM THE PHYSICIAN. AGENCY MAY PERFORM A RESUMPTION OF CARE VISIT FOLLOWING ANY HOSPITAL ADMISSION. REGISTERED NURSE/LICENSED PRACTICAL NURSE TO MONITOR CO-MORBID CONDITIONS LISTED ON THE PLAN OF CARE AND ANY NEW CONDITIONS THAT PRESENT THEMSELVES DURING THIS EPISODE TO IDENTIFY CHANGES AND INTERVENE TO MINIMIZE COMPLICATIONS.] Future Scheduled Test PAIN MANAG EMENT; REGISTERED NURSE TO ASSESS AND TEACH/LICENSED PRACTICAL NURSE TO OBSERVE AND TEACH AND PROVIDE EDUCATION ON PAIN MANAGEMENT TECHNIQUES. [code = PAIN MANAGEMENT; REGISTERED NURSE TO ASSESS AND TEACH/LICENSED PRACTICAL NURSE TO OBSERVE AND TEACH AND PROVIDE EDUCATION ON PAIN MANAGEMENT TECHNIQUES.] Future Scheduled Test 60 DAY PHY SICIAN SUMMARY; JUSTIFY NEED FOR CONTINUED CARE (RECERT) DUE TO NEW GOALS AND/OR PROBLEMS: EXPLAIN/LIST OBSTACLES AND/OR CHALLENGES FOR EXAMPLE: MEDICATION TEACHING [code = 60 DAY PHYSICIAN SUMMARY; JUSTIFY NEED FOR CONTINUED CARE (RECERT) DUE TO NEW GOALS AND/OR PROBLEMS: EXPLAIN/LIST OBSTACLES AND/OR CHALLENGES FOR EXAMPLE: MEDICATION TEACHING ] Future Scheduled Test RISK FOR H OSPITALIZATION; REGISTERED NURSE TO ASSESS /TEACH, LICENSED PRACTICAL NURSE TO OBSERVE/TEACH PATIENT/CAREGIVER ON RISK FOR HOSPITALIZATION/EMERGENCY ROOM VISITS, TEACH SIGNS AND SYMPTOMS THAT PUT PATIENT AT RISK, WHEN TO NOTIFY NURSE/PHYSICIAN OF COMPLICATIONS/DECLINE, AND WHEN TO CALL 911. [code = RISK FOR HOSPITALIZATION; REGISTERED NURSE TO ASSESS /TEACH, LICENSED PRACTICAL NURSE TO OBSERVE/TEACH PATIENT/CAREGIVER ON RISK FOR HOSPITALIZATION/EMERGENCY ROOM VISITS, TEACH SIGNS AND SYMPTOMS THAT PUT PATIENT AT RISK, WHEN TO NOTIFY NURSE/PHYSICIAN OF COMPLICATIONS/DECLINE, AND WHEN TO CALL 911.] Future Scheduled Test CARDIOVASC ULAR SYSTEM; REGISTERED NURSE TO ASSESS /TEACH, LICENSED PRACTICAL NURSE TO OBSERVE/TEACH RELATED TO ALTERED CARDIOVASCULAR STATUS TO MINIMIZE COMPLICATIONS AND REDUCE HOSPITALIZATION. [code = CARDIOVASCULAR SYSTEM; REGISTERED NURSE TO ASSESS /TEACH, LICENSED PRACTICAL NURSE TO OBSERVE/TEACH RELATED TO ALTERED CARDIOVASCULAR STATUS TO MINIMIZE COMPLICATIONS AND REDUCE HOSPITALIZATION. ] Future Scheduled Test HEART FAIL URE; REGISTERED NURSE TO ASSESS /TEACH, LICENSED PRACTICAL NURSE TO OBSERVE/TEACH CARDIOPULMONARY SYSTEM TO IDENTIFY SIGNS OF DECOMPENSATION AND INTERVENE TO MINIMIZE THE SEVERITY OF FLUID OVERLOAD. OBSERVE PATIENT ABILITY TO MONITOR AND RECORD DAILY WEIGHTS AND VITAL SIGNS, INCLUDING PULSE AND BLOOD PRESSURE; RECORD PATIENT REPORTED WEIGHT, OR WEIGH PATIENT NEEDED. REPORT INCREASED EDEMA OR WEIGHT GAIN OF >2 LBS IN 1 DAY OR >5 LBS IN 1 WEEK OR 5LBS OR MORE OVER TARGET WEIGHT. MAY MEASURE ABDOMINAL GIRTH IF UNABLE TO WEIGH. SCALES AND BP MONITOR TO BE PROVIDED IF NEEDED. [code = HEART FAILURE; REGISTERED NURSE TO ASSESS /TEACH, LICENSED PRACTICAL NURSE TO OBSERVE/TEACH CARDIOPULMONARY SYSTEM TO IDENTIFY SIGNS OF DECOMPENSATION AND INTERVENE TO MINIMIZE THE SEVERITY OF FLUID OVERLOAD. OBSERVE PATIENT ABILITY TO MONITOR AND RECORD DAILY WEIGHTS AND VITAL SIGNS, INCLUDING PULSE AND BLOOD PRESSURE; RECORD PATIENT REPORTED WEIGHT, OR WEIGH PATIENT NEEDED. REPORT INCREASED EDEMA OR WEIGHT GAIN OF >2 LBS IN 1 DAY OR >5 LBS IN 1 WEEK OR 5LBS OR MORE OVER TARGET WEIGHT. MAY MEASURE ABDOMINAL GIRTH IF UNABLE TO WEIGH. SCALES AND BP MONITOR TO BE PROVIDED IF NEEDED. ] Future Scheduled Test HYPERTENSI ON MANAGEMENT; REGISTERED NURSE TO ASSESS AND TEACH/LICENSED PRACTICAL NURSE TO OBSERVE AND TEACH WARNING SIGNS AND SYMPTOMS TO AVOID HOSPITALIZATION. [code = HYPERTENSION MANAGEMENT; REGISTERED NURSE TO ASSESS AND TEACH/LICENSED PRACTICAL NURSE TO OBSERVE AND TEACH WARNING SIGNS AND SYMPTOMS TO AVOID HOSPITALIZATION. ] Future Scheduled Test AGENCY MAY PERFORM A RESUMPTION OF CARE VISIT FOLLOWING ANY HOSPITAL ADMISSION. OT TO EVALUATE, OBSERVE / ASSESS, AND MONITOR, QUALITY CONSULTANT TO OBSERVE AND MONITOR, PROVIDE SKILLED THERAPEUTIC INTERVENTION, ACTIVITY, EDUCATION, AND TRAINING TO ADDRESS; PERSONAL HYGIENE/GROOMING (OT/QUALITY CONSULTANT) BATHING/SHOWERING (OT/QUALITY CONSULTANT) DRESSING (OT/ANDRIY) ACTIVITIES OF DAILY LIVING (OT/ANDRIY) MEAL PREPARATION AND CLEANUP (OT/ANDRIY) TOILET TRANSFER (OT/ANDRIY) BATH/SHOWER TRANSFER (OT/ANDRIY) ORTHOTICS/SPLINTING (OT/ANDRIY) POSTURAL CONTROL/BALANCE (OT/QUALITY CONSULTANT) THERAPEUTIC EXERCISE (OT/ANDRIY) FINE MOTOR COORDINATION (OT/QUALITY CONSULTANT) ENERGY CONSERVATION/ACTIVITY DEMAND (OT/QUALITY CONSULTANT) OT/QUALITY CONSULTANT TO MONITOR AND EDUCATE ON OXYGEN SATURATION DURING ADLS/IADLS, NOTIFY PHYSICIAN AND/OR THE RN CLINICAL PROJECT CONTROLS SPECIALIST FOR PHYSICIAN NOTIFICATION AND IF O2 SATS BELOW 90% AFTER 10 MIN OF REST. OT/ANDRIY MAY EDUCATE ON PAIN MANAGEMENT CLINICALLY INDICATED, INCLUDING NON-PHARMACOLOGICAL PAIN REDUCTION TECHNIQUES AND USE OF CRYOTHERAPY OR HEAT UP TO 20 MIN AT A TIME FOR PAIN MANAGEMENT TO LUE OT / ANDRIY TO IDENTIFY FALL RISK FACTORS; EDUCATE THE PATIENT/CAREGIVER ON WAYS TO REDUCE FALL RISK FACTORS AND ESTABLISH HOME EXERCISE PROGRAM TO MINIMIZE FALL RISK. MAY TEACH THE PATIENT FLOOR RECOVERY WHEN CLINICALLY APPROPRIATE. OT/ANDRIY TO EDUCATE ON CLAVICLE FRACTURE SELF MANAGEMENT [code = AGENCY MAY PERFORM A RESUMPTION OF CARE VISIT FOLLOWING ANY HOSPITAL ADMISSION. OT TO EVALUATE, OBSERVE / ASSESS, AND MONITOR, ANDRIY TO OBSERVE AND MONITOR, PROVIDE SKILLED THERAPEUTIC INTERVENTION, ACTIVITY, EDUCATION, AND TRAINING TO ADDRESS; PERSONAL HYGIENE/GROOMING (OT/ANDRIY) BATHING/SHOWERING (OT/ANDRIY) DRESSING (OT/ANDRIY) ACTIVITIES OF DAILY LIVING (OT/ANDRIY) MEAL PREPARATION AND CLEANUP (OT/QUALITY CONSULTANT) TOILET TRANSFER (OT/ANDRIY) BATH/SHOWER TRANSFER (OT/QUALITY CONSULTANT) ORTHOTICS/SPLINTING (OT/QUALITY CONSULTANT) POSTURAL CONTROL/BALANCE (OT/QUALITY CONSULTANT) THERAPEUTIC EXERCISE (OT/ANDRIY) FINE MOTOR COORDINATION (OT/ANDRIY) ENERGY CONSERVATION/ACTIVITY DEMAND (OT/ANDRIY) OT/QUALITY CONSULTANT TO MONITOR AND EDUCATE ON OXYGEN SATURATION DURING ADLS/IADLS, NOTIFY PHYSICIAN AND/OR THE RN CLINICAL PROJECT CONTROLS SPECIALIST FOR PHYSICIAN NOTIFICATION AND IF O2 SATS BELOW 90% AFTER 10 MIN OF REST. OT/ANDRIY MAY EDUCATE ON PAIN MANAGEMENT CLINICALLY INDICATED, INCLUDING NON-PHARMACOLOGICAL PAIN REDUCTION TECHNIQUES AND USE OF CRYOTHERAPY OR HEAT UP TO 20 MIN AT A TIME FOR PAIN MANAGEMENT TO LUE OT / QUALITY CONSULTANT TO IDENTIFY FALL RISK FACTORS; EDUCATE THE PATIENT/CAREGIVER ON WAYS TO REDUCE FALL RISK FACTORS AND ESTABLISH HOME EXERCISE PROGRAM TO MINIMIZE FALL RISK. MAY TEACH THE PATIENT FLOOR RECOVERY WHEN CLINICALLY APPROPRIATE. OT/ANDRIY TO EDUCATE ON CLAVICLE FRACTURE SELF MANAGEMENT] Goal 2024-06-28 Patient Goal - TO USE MY ARM Goal 2024-04-26 Patient Goal - TO USE MY ARM Goal Provider Goal - Goal Provider Goal - PATIENT/CAREGIVER TO VERBALIZE, AND CONSISTENTLY DEMONSTRATE EFFECTIVE, SAFE MANAGEMENT OF MEDICATION INCLUDING KNOWLEDGE OF EFFECTIVENESS, POTENTIAL SIDE EFFECTS AND DRUG REACTIONS AND WHEN TO CONTACT THE APPROPRIATE CARE PROVIDER. PATIENT/CAREGIVER WILL BE ABLE TO VERBALIZE UNDERSTANDING OF MEDICATION REGIMEN AND ACCURATELY TAKE MEDICATIONS PRESCRIBED WITHOUT ADVERSE EFFECTS BY 06/29/24 Goal Provider Goal - PATIENT/CAREGIVER ABLE TO IDENTIFY FALL RISK FACTORS AND IMPLEMENT STRATEGIES TO MINIMIZE FALL RISK. PATIENT/CAREGIVER WILL VERBALIZE/DEMONSTRATE AN ABILITY TO ADHERE TO FALL REDUCTION SELF MANAGEMENT AND LIFE-STYLE CHANGES AT DISCHARGE. PERSONAL GOAL(S) STATED BY PATIENT/CAREGIVER WILL BE MET BY 06/29/24 Goal Provider Goal - A PLAN OF CARE WILL BE ESTABLISHED THAT MEETS THE PATIENTS NEEDS. PATIENT WILL DEMONSTRATE OXYGEN SATURATION WITHIN NORMAL LIMITS OR PATIENTS OPTIMAL LEVEL ESTABLISHED BY THE PHYSICIAN THROUGHOUT CARE. CHANGES TO CO-MORBID CONDITIONS AND ANY NEW CONDITIONS WILL BE IDENTIFIED AND REPORTED TO THE PHYSICIAN. Goal Provider Goal - PATIENT / CAREGIVER WILL VERBALIZE / DEMONSTRATE UNDERSTANDING OF PAIN CONTROL MEASURES BY 06/29/24 Goal Provider Goal - Goal Provider Goal - PATIENT/CAREGIVER WILL VERBALIZE UNDERSTANDING OF SIGNS AND SYMPTOMS THAT PUT THE PATIENT AT RISK FOR HOSPITALIZATION /EMERGENCY ROOM VISITS, WHEN TO NOTIFY NURSE/PHYSICIAN OF COMPLICATIONS/DECLINE AND WHEN TO CALL 911. Goal Provider Goal - PATIENT / CAREGIVER WILL VERBALIZE/DEMONSTRATE UNDERSTANDING OF MEASURES TO MANAGE ALTERED CARDIOVASCULAR STATUS BY EOE Goal Provider Goal - PATIENT / CAREGIVER WILL VERBALIZE/DEMONSTRATE AN ABILITY TO ADHERE TO SELF-MANAGEMENT OF HF TO MINIMIZE COMPLICATIONS AND AVOID HOSPITALIZATION BY END OF EPISODE. Goal Provider Goal - PATIENT / CAREGIVER WILL VERBALIZE/DEMONSTRATE AN ABILITY TO ADHERE TO SELF-MANAGEMENT OF HTN TO MINIMIZE COMPLICATIONS AND AVOID HOSPITALIZATION BY END OF EPISODE. Goal Provider Goal - OT STG: PATIENT WILL DEMONSTRATE IMPROVED ABILITY TO PERFORM GROOMING FROM MOD A TO MODIFIED INDEPENDENCE WITHIN 4 WEEKS( MINIMAL ASSISTANCE) GOAL ONGOING. OT LTG: PATIENT WILL DEMONSTRATE IMPROVED ABILITY TO PERFORM BATHING IN THE SHOWER WITH ADAPTIVE EQUIPMENT AND UTILIZING ENERGY CONSERVATION AND WORK SIMPLIFICATION TECHNIQUES FROM MAX A MIN A WITH DECREASED FEAR OF FALLING WITHIN 7 WEEKS. ( MODERATE ASSISTANCE, ON SHOWER CHAIR) OT LTG: PATIENT WILL DEMONSTRATE IMPROVED ABILITY TO PERFORM SHOWER TRANSFER FROM MOD A TO MIN A UTILIZING RECOMMENDED ADAPTIVE EQUIPMENT WITHIN 6 WEEKS.( MIN A , GOAL ONGOING) OT STG: PATIENT WILL DEMONSTRATE IMPROVED ABILITY TO PERFORM TOILET TRANSFER FROM MOD A TO MODIFIED INDEPENDENT UTILIZING LRD WITHIN 5 WEEKS( MINIMAL ASSISTANCE WITH WALKER) OT STG: PATIENT WILL DEMONSTRATE IMPROVED ABILITY TO PERFORM /LB DRESSING INCLUDING ITEM RETRIEVAL FROM MIN A TO MODIFIED INDEPENDENCE UTILIZING ADAPTIVE EQUIPMENT NEEDED WITHIN 4 WEEKS ( GOAL ONGOING) MINIMAL ASSISTANCE WITH PANTS TO DON) OT LTG: PATIENT WILL DEMONSTRATE IMPROVED INDEPENDENCE WITH ACTIVITIES OF DAILY LIVING (ADL) SKILLS EVIDENCED BY AN IMPROVEMENT IN MODIFIED VANGIE INDEX SCORE FROM 58/100 TO 75/100 INDICATING DECREASED DEPENDENCY ON CAREGIVER ASSISTANCE WITHIN 8 WEEKS.( CURRENT LEVEL MBI 62/100 ) GOAL ONGOING. OT LTG: PATIENT WILL DEMONSTRATE THE ABILITY TO COMPLETE LIGHT HEALTHY SNACK AND BEVERAGE PREPARATION AND CLEANUP FROM MAX A TO MODIFIED INDEPENDENCE UTILIZING ADAPTIVE EQUIPMENT NEEDED IN INCORPORATING ENERGY CONSERVATION AND WORK SIMPLIFICATION TECHNIQUES INTO TASK WITHIN 7 WEEKS( MOD A , GOAL ONGOING) OT LTG: PATIENT WILL DEMONSTRATE DECREASED FALL RISK EVIDENCED BY AN IMPROVEMENT IN FUNCTIONAL REACH SCORE FROM 5 INCHES TO 8 INCHES FOR IMPROVED ADL/IADL COMPLETION AND HOME SAFETY BY DISCHARGE WITHIN 7 WEEKS( CURRENT LEVEL FUNCTIONAL REACH = 5 INCHES RUE)GOAL ONGOING. OT LTG: PATIENT WILL DEMONSTRATE IMPROVED UE MUSCLE STRENGTH EVIDENCED BY AN IMPROVEMENT IN MMT/FUNCTIONAL STRENGTH FROM 3+ TO 4/5 RUE IN ORDER TO PERFORM ADLS MORE INDEPENDENTLY AND BE INDEPENDENT WITH HEP WITHIN 8 WEEKS ( CURRENT LEVEL 4-/5: RUE GOAL ONGOING) OT LTG: PATIENT WILL DEMONSTRATE IMPROVED ROM IN LUE THROUGHOUT TO ASSIST WITH ADL SKILLS AND USE LUE GROSS ASSIST WITHIN 7 WEEKS.( GOAL ONGOING) EDUCATED ON AAROM LUE. SUPINE EXERCISES. OT LTG: PATIENT WILL DEMONSTRATE IMPROVED FINE MOTOR COORDINATION SKILLS EVIDENCED BY IMPROVED ABILITY TO ASSIST WITH DONNING SHIRT FROM MAX A TO SET UP WITHIN 7 WEEKS( CURRENT LEVEL MODERATE ASSISTANCE) GOAL ONGOING OT LTG: PATIENT WILL MAINTAIN OXYGEN SATURATION WITHIN PHYSICIAN ORDERED PARAMETERS THROUGHOUT THE EPISODE OF CARE.( GOAL ONGOING TO MONITOR) OT LTG: PATIENT WILL DEMONSTRATE UNDERSTANDING OF PAIN MANAGEMENT TECHNIQUES EVIDENCED BY REDUCED PAIN IN LUE FROM 6 TO 3/10 WITHIN 7 WEEKS. OT LTG: PATIENT/CAREGIVER WILL BE ABLE TO IMPLEMENT RECOMMENDATIONS SPECIFIC TO FALL REDUCTION FOR IMPROVED ADL/IADL COMPLETION AND HOME SAFETY BY END OF EPISODE.( 4/10 LUE) GOAL ONGOING OT LTG: PATIENT WILL BE INDEPENDENT WITH IMPLEMENTATION OF HEP FOR LUE INDICATED BY ORTHOPEDIC SURGEON WITHIN 7 WEEKS ( CURRENT LEVEL GOAL ONGOING ) OT GOAL: PATIENT WILL DEMONSTRATE OPTIMAL OUTCOMES INCLUDING DECREASED PAIN AND INCREASED ROM AND STRENGTH WITH NO COMPLICATIONS AND IMPROVED INDEPENDENCE WITH ADLS FOLLOWING CLAVICLE FRACTURE BY END OF EPISODE.( CURRENT LEVEL GOAL ONGOING TO ADDRESS) OT GOAL: PATIENT/CAREGIVER WILL VERBALIZE UNDERSTANDING OF A PARKINSON'S SELF-MANAGEMENT AND LIFE-STYLE CHANGES BY END OF EPISODE. ( GOAL ONGOING) OT LTG: PATIENT WILL DEMONSTRATE IMPROVED ABILITY TO MANAGE ORTHOTICS/SPLINT FROM UNABLE TO MAX A WITHIN 8 WEEKS IN ORDER TO DOFF SPLINT AND PERFORM SKIN CHECK LUE. INCREASE WEARING TOLERANCE . OT LTG: PATIENT WILL MAINTAIN OXYGEN SATURATION WITHIN PHYSICIAN ORDERED PARAMETERS THROUGHOUT THE EPISODE OF CARE. OT GOAL: PATIENT WILL DEMONSTRATE OPTIMAL OUTCOMES INCLUDING DECREASED PAIN AND INCREASED ROM AND STRENGTH WITH NO COMPLICATIONS AND IMPROVED INDEPENDENCE WITH ADLS FOLLOWING CLAVICLE FRACTURE BY END OF EPISODE. Reason for Visit INDEPENDENT WITH USE OF ASSISTIVE DEVICE Encounters Start Date/Time End Date/Time Encounter Type Admission Type Attending [facility] Department Encounter ID Discharge Date Discharge Status Discharge Condition Discharge Reason Percent Goals Met 2024-03-02 00:00:00 2024-06-28 00:00:00 Outpatient RECERTIFIC JUNG MANLEY [facility] [id number] 2024-06-28 00:00:00 DISCHARGE TO HOME OR SELF CARE INDEPENDEN T WITH USE OF ASSISTIVE DEVICE HH OR PAL- GOALS MET 94.00
--- OUTSIDE RECORDS SUMMARY | 2024-10-05 03:00 | XMS_ITS | Clinical Summary ---
Author Organization Unknown Care Team Providers Care Court Attendant Name Role Phone [employer] MARKETING [employer] COMMUNICATIONS OFFICER, GEO Unavailable Unavailable MICHELA PT, JACLYN Unavailable Unavailable NAPOLITAN OT, ISHAMEL Unavailable Unavailable OLIVER RN, JUNG Unavailable Unavailable ROQUE REMEDIAL TEACHER, CHI Unavailable Unavailable CONDINO ANDRIY/PLASCENCIA, ERIK Unavailable Unav ailable [employer] FITNESS INSTRUCTOR, GALILEO Unavailable Unavailabl e Payers Payer Name Policy Type Policy Number Effective Date Expira tion Date MEDICARE.NGS.PDGM [id number] Problems Condition Name Condition Details Condition Category [...] HISTORY OF FALLING Active 10-25 00:00: 00 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 TS Active 10-25 [...] 100 mg tablet 01-23 00:00: 00 Yes [id number] PARKINSON 1 tablet 4 TIMES DAILY 1 tablet 4 TIMES DAILY (route: oral) Med Classific ation: Central Nervous System Agents Eliquis 5 mg tablet 01-23 00:00: 00 Yes [id number] AFIB 1 tablet 2 TIMES DAILY 1 tablet 2 TIMES DAILY (route: oral) Med Classific ation: Hematolog ical Agents Lidocaine Pain Relief 4 % topical patch 01-23 00:00: 00 Yes [id number] PAIN 1 adhesiv e patch, medicat ed DAILY 1 adhesive patch, medicated DAILY (route: topical) Med Classific ation: Dermatolo gical metoprolol succinate ER 25 mg tablet,exte nded release 24 hr 01-23 00:00: 00 03-03 12:57 :13.8 53 No [id number] HTN 0.5 tablet DAILY 0.5 tablet DAILY (route: oral) Med Classific ation: Cardiovas cular Therapy Agents omeprazole 20 mg capsule,del ayed release 01-23 00:00: 00 Yes [id number] GERD 1 capsule DAILY 1 capsule DAILY (route: oral) Med Classific ation: Gastroint estinal Therapy Agents pravastatin 20 mg tablet 01-23 00:00: 00 Yes [id number] HLD 1 tablet DAILY 1 tablet DAILY (route: oral) Med Classific ation: Cardiovas cular Therapy Agents sertraline 25 mg tablet 01-23 00:00: 00 Yes [id number] DEPRESSION 3 tablet DAILY 3 tablet DAILY (route: oral) Med Classific ation: Central Nervous System Agents Tylenol Extra Strength 500 mg tablet 01-23 00:00: 00 Yes [id number] PAIN 2 tablet EVERY 6 HOURS 2 tablet EVERY 6 HOURS (route: oral) Med Classific ation: Analgesic , Anti-infl ammatory or Antipyret ic Vitamin D3 125 mcg (5,000 unit) tablet 01-23 00:00: 00 Yes [id number] SUPPLEMENT 1 tablet DAILY 1 tablet DAILY (route: oral) Med Classific ation: Electroly te Balance-N utritiona l Products docusate sodium 100 mg capsule 03-02 00:00: 00 Yes [id number] CONSTIPATIO N 1 capsule 2 TIMES DAILY 1 capsule 2 TIMES DAILY (route: oral) Med Classific ation: Gastroint estinal Therapy Agents midodrine 10 mg tablet 03-02 00:00: 00 Yes [id number] HYPOTENSION 1 tablet 3 TIMES DAILY 1 tablet 3 TIMES DAILY (route: oral) Med Classific ation: Cardiovas cular Therapy Agents Lasix 20 mg tablet 03-02 00:00: 00 Yes [id number] CHF 1 tablet DAILY 1 tablet DAILY (route: oral) Med Classific ation: Cardiovas cular Therapy Agents carbidopa 25 mg-levodopa 100 mg tablet 03-02 00:00: 00 Yes [id number] parkinsons 1 tablet 4 TIMES DAILY 1 tablet 4 TIMES DAILY (route: oral) Med Classific ation: Central Nervous System Agents metoprolol succinate ER 25 mg tablet,exte nded release 24 hr 03-02 00:00: 00 Yes [id number] htn 1 tablet DAILY 1 tablet DAILY [...] AND PRN FOR SOB FOR RN TO ASSESS/AQU[employer]ICS GROUP FITNESS INSTRUCTOR TO OBSERVE PATIENT, WITH NOTIFICATION TO THE [...] AND PRN FOR SOB FOR RN TO ASSESS/AQU[employer]ICS GROUP FITNESS INSTRUCTOR TO OBSERVE PATIENT, WITH NOTIFICATION TO THE [...] TO EVALUATE, OBSERVE / ASSESS, AND MONITOR, FLIGHT STEWARD TO OBSERVE AND MONITOR, PROVIDE SKILLED THERAPEUTIC INTERVENTION, ACTIVITY, EDUCATION, AND TRAINING TO ADDRESS; PERSONAL HYGIENE/GROOMING (OT/FLIGHT STEWARD) BATHING/SHOWERING (OT/FLIGHT STEWARD) DRESSING (OT/ANDRIY) ACTIVITIES OF DAILY LIVING (OT/ANDRIY) MEAL PREPARATION AND CLEANUP (OT/ANDRIY) TOILET TRANSFER (OT/ANDRIY) BATH/SHOWER TRANSFER (OT/ANDRIY) ORTHOTICS/SPLINTING (OT/ANDRIY) POSTURAL CONTROL/BALANCE (OT/FLIGHT STEWARD) THERAPEUTIC EXERCISE (OT/ANDRIY) FINE MOTOR COORDINATION (OT/FLIGHT STEWARD) ENERGY CONSERVATION/ACTIVITY DEMAND (OT/FLIGHT STEWARD) OT/FLIGHT STEWARD TO MONITOR AND EDUCATE ON OXYGEN SATURATION DURING ADLS/IADLS, NOTIFY PHYSICIAN AND/OR THE RN CLINICAL PULL THROUGH HOOKER FOR PHYSICIAN NOTIFICATION AND IF O2 SATS [...] DAILY LIVING (OT/ANDRIY) MEAL PREPARATION AND CLEANUP (OT/FLIGHT STEWARD) TOILET TRANSFER (OT/ANDRIY) BATH/SHOWER TRANSFER (OT/FLIGHT STEWARD) ORTHOTICS/SPLINTING (OT/FLIGHT STEWARD) POSTURAL CONTROL/BALANCE (OT/FLIGHT STEWARD) THERAPEUTIC EXERCISE (OT/ANDRIY) FINE MOTOR COORDINATION (OT/ANDRIY) ENERGY CONSERVATION/ACTIVITY DEMAND (OT/ANDRIY) OT/FLIGHT STEWARD TO MONITOR AND EDUCATE ON OXYGEN SATURATION DURING ADLS/IADLS, NOTIFY PHYSICIAN AND/OR THE RN CLINICAL PULL THROUGH HOOKER FOR PHYSICIAN NOTIFICATION AND IF O2 SATS BELOW 90% AFTER 10 MIN OF REST. OT/ANDRIY MAY EDUCATE ON PAIN MANAGEMENT CLINICALLY INDICATED, INCLUDING NON-PHARMACOLOGICAL PAIN REDUCTION TECHNIQUES AND USE OF CRYOTHERAPY OR HEAT UP TO 20 MIN AT A TIME FOR PAIN MANAGEMENT TO LUE OT / FLIGHT STEWARD TO IDENTIFY FALL RISK FACTORS; EDUCATE THE PATIENT/CAREGIVER ON WAYS TO REDUCE FALL RISK FACTORS AND ESTABLISH HOME EXERCISE PROGRAM TO MINIMIZE FALL RISK. MAY TEACH THE PATIENT FLOOR RECOVERY WHEN CLINICALLY APPROPRIATE. OT/ANDRIY TO EDUCATE ON CLAVICLE FRACTURE SELF MANAGEMENT] Goal 2024-04-26 Patient Goal - TO USE MY ARM Goal 2024-06-28 Patient Goal - TO USE [...] End Date/Time Encounter Type Admission Type Attending [facility] Department Encounter ID Discharge Date Discharge Status Discharge Condition Discharge Reason Percent Goals Met 2024-03-02 00:00:00 2024-06-28 00:00:00 Outpatient RECERTIFIC JUNG MANLEY [facility] [id number] 2024-06-28 00:00:00 DISCHARGE TO HOME OR SELF CARE INDEPENDEN T WITH USE OF ASSISTIVE DEVICE HH OR PAL- GOALS MET 94.00
--- OUTSIDE RECORDS SUMMARY | 2024-10-05 03:00 | XMS_ITS | Clinical Summary ---
Author Organization Unknown Care Team Providers Care Clerk Operator Name Role Phone INGA DIGITAL RESEARCH ANALYST, GEO Unavailable Unavailable MICHELA PT, JACLYN Unavailable Unavailable [place]OL[place]AN OT, ISHMAEL Unavailable Unavailable OLIVER RN, JUNG Unavailable Unavailable ROQUE DANCE TEACHER, CHI Unavailable Unavailable CONDINO ANDRIY/PLASCENCIA, ERIK Unavailable Unav ailable MARIELLE STUDIO COORDINATOR, GALILEO Unavailable Unavailabl e Payers Payer Name Policy Type Policy Number Effective Date Expira tion Date MEDICARE.NGS.PDGM [id number] Problems Condition Name Condition Details Condition Category [...] HISTORY OF 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 Active 10-25 00:00: 00 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 TS Active 10-25 [...] 100 mg tablet 01-23 00:00: 00 Yes [id number] PARKINSON 1 tablet 4 TIMES DAILY 1 tablet 4 TIMES DAILY (route: oral) Med Classific ation: Central Nervous System Agents Eliquis 5 mg tablet 01-23 00:00: 00 Yes [id number] AFIB 1 tablet 2 TIMES DAILY 1 tablet 2 TIMES DAILY (route: oral) Med Classific ation: Hematolog ical Agents Lidocaine Pain Relief 4 % topical patch 01-23 00:00: 00 Yes [id number] PAIN 1 adhesiv e patch, medicat ed DAILY 1 adhesive patch, medicated DAILY (route: topical) Med Classific ation: Dermatolo gical metoprolol succinate ER 25 mg tablet,exte nded release 24 hr 01-23 00:00: 00 03-03 12:57 :13.8 53 No [id number] HTN 0.5 tablet DAILY 0.5 tablet DAILY (route: oral) Med Classific ation: Cardiovas cular Therapy Agents omeprazole 20 mg capsule,del ayed release 01-23 00:00: 00 Yes [id number] GERD 1 capsule DAILY 1 capsule DAILY (route: oral) Med Classific ation: Gastroint estinal Therapy Agents pravastatin 20 mg tablet 01-23 00:00: 00 Yes [id number] HLD 1 tablet DAILY 1 tablet DAILY (route: oral) Med Classific ation: Cardiovas cular Therapy Agents sertraline 25 mg tablet 01-23 00:00: 00 Yes [id number] DEPRESSION 3 tablet DAILY 3 tablet DAILY (route: oral) Med Classific ation: Central Nervous System Agents Tylenol Extra Strength 500 mg tablet 01-23 00:00: 00 Yes [id number] PAIN 2 tablet EVERY 6 HOURS 2 tablet EVERY 6 HOURS (route: oral) Med Classific ation: Analgesic , Anti-infl ammatory or Antipyret ic Vitamin D3 125 mcg (5,000 unit) tablet 01-23 00:00: 00 Yes [id number] SUPPLEMENT 1 tablet DAILY 1 tablet DAILY (route: oral) Med Classific ation: Electroly te Balance-N utritiona l Products docusate sodium 100 mg capsule 03-02 00:00: 00 Yes [id number] CONSTIPATIO N 1 capsule 2 TIMES DAILY 1 capsule 2 TIMES DAILY (route: oral) Med Classific ation: Gastroint estinal Therapy Agents midodrine 10 mg tablet 03-02 00:00: 00 Yes [id number] HYPOTENSION 1 tablet 3 TIMES DAILY 1 tablet 3 TIMES DAILY (route: oral) Med Classific ation: Cardiovas cular Therapy Agents Lasix 20 mg tablet 03-02 00:00: 00 Yes [id number] CHF 1 tablet DAILY 1 tablet DAILY (route: oral) Med Classific ation: Cardiovas cular Therapy Agents carbidopa 25 mg-levodopa 100 mg tablet 03-02 00:00: 00 Yes [id number] parkinsons 1 tablet 4 TIMES DAILY 1 tablet 4 TIMES DAILY (route: oral) Med Classific ation: Central Nervous System Agents metoprolol succinate ER 25 mg tablet,exte nded release 24 hr 03-02 00:00: 00 Yes [id number] htn 1 tablet DAILY 1 tablet DAILY [...] AND PRN FOR SOB FOR RN TO ASSESS/STUDIO COORDINATOR TO OBSERVE PATIENT, WITH NOTIFICATION TO THE [...] AND PRN FOR SOB FOR RN TO ASSESS/STUDIO COORDINATOR TO OBSERVE PATIENT, WITH NOTIFICATION TO THE [...] TO EVALUATE, OBSERVE / ASSESS, AND MONITOR, ARCHITECTURAL DESIGN PROFESSOR TO OBSERVE AND MONITOR, PROVIDE SKILLED THERAPEUTIC INTERVENTION, ACTIVITY, EDUCATION, AND TRAINING TO ADDRESS; PERSONAL HYGIENE/GROOMING (OT/ARCHITECTURAL DESIGN PROFESSOR) BATHING/SHOWERING (OT/ARCHITECTURAL DESIGN PROFESSOR) DRESSING (OT/ANDRIY) ACTIVITIES OF DAILY LIVING (OT/ANDRIY) MEAL PREPARATION AND CLEANUP (OT/ANDRIY) TOILET TRANSFER (OT/ANDRIY) BATH/SHOWER TRANSFER (OT/ANDRIY) ORTHOTICS/SPLINTING (OT/ANDRIY) POSTURAL CONTROL/BALANCE (OT/ARCHITECTURAL DESIGN PROFESSOR) THERAPEUTIC EXERCISE (OT/ANDRIY) FINE MOTOR COORDINATION (OT/ARCHITECTURAL DESIGN PROFESSOR) ENERGY CONSERVATION/ACTIVITY DEMAND (OT/ARCHITECTURAL DESIGN PROFESSOR) OT/ARCHITECTURAL DESIGN PROFESSOR TO MONITOR AND EDUCATE ON OXYGEN SATURATION DURING ADLS/IADLS, NOTIFY PHYSICIAN AND/OR THE RN CLINICAL EDGE STRIPPER FOR PHYSICIAN NOTIFICATION AND IF O2 SATS [...] DAILY LIVING (OT/ANDRIY) MEAL PREPARATION AND CLEANUP (OT/ARCHITECTURAL DESIGN PROFESSOR) TOILET TRANSFER (OT/ANDRIY) BATH/SHOWER TRANSFER (OT/ARCHITECTURAL DESIGN PROFESSOR) ORTHOTICS/SPLINTING (OT/ARCHITECTURAL DESIGN PROFESSOR) POSTURAL CONTROL/BALANCE (OT/ARCHITECTURAL DESIGN PROFESSOR) THERAPEUTIC EXERCISE (OT/ANDRIY) FINE MOTOR COORDINATION (OT/ANDRIY) ENERGY CONSERVATION/ACTIVITY DEMAND (OT/ANDRIY) OT/ARCHITECTURAL DESIGN PROFESSOR TO MONITOR AND EDUCATE ON OXYGEN SATURATION DURING ADLS/IADLS, NOTIFY PHYSICIAN AND/OR THE RN CLINICAL EDGE STRIPPER FOR PHYSICIAN NOTIFICATION AND IF O2 SATS BELOW 90% AFTER 10 MIN OF REST. OT/ANDRIY MAY EDUCATE ON PAIN MANAGEMENT CLINICALLY INDICATED, INCLUDING NON-PHARMACOLOGICAL PAIN REDUCTION TECHNIQUES AND USE OF CRYOTHERAPY OR HEAT UP TO 20 MIN AT A TIME FOR PAIN MANAGEMENT TO LUE OT / ARCHITECTURAL DESIGN PROFESSOR TO IDENTIFY FALL RISK FACTORS; EDUCATE THE [...] Date/Time Encounter Type Admission Type Attending [facility] Department Encounter ID Discharge Date Discharge Status Discharge Condition Discharge Reason Percent Goals Met 2024-03-02 00:00:00 2024-06-28 00:00:00 Outpatient RECERTIFIC JUNG MANLEY [facility] [id number] 2024-06-28 00:00:00 DISCHARGE TO HOME OR SELF CARE INDEPENDEN T WITH USE OF ASSISTIVE DEVICE HH OR PAL- GOALS MET 94.00
== END 2024-10-04 16:24 | disposition home or self-care (01) ==
PROVIDERS: PCP Nurse Practitioner; Visit Provider Psychiatry & Neurology Neurology
DX: G20.A1 Parkinson's disease without dyskinesia, without mention of fluctuations (principal); F32.A Depression, unspecified; I95.1 Orthostatic hypotension
CPT/HCPCS: 99443; G2211